=== PATIENT | female | born 1960 | race Caucasian/White ===

== ENCOUNTER 2024-12-15 14:04 | Emergency (ER) | payer OTHER, SELFPAY ==
--- OUTSIDE RECORDS SUMMARY | 2024-12-15 14:07 | XMS_ITS | Clinical Summary ---
Author Organization [facility] Address [address] [place] [id number] Care Team Providers Care Pitching Coach Name Role Phone Lm Lux MD Primary Care Provider [phone]- [phone] Finesse Vasquez PharmD Unavailable + Allergies Active Allergy Reactions Criticality Noted Date Comments Nitrofurantoin Hives 12/13/2007 Medications No known medications Active Problems Patient Care Coordination No te Formatting of this note migh t be different from the original. Getting back to work and general health on track is what matters most to Catalina. Catalina would like her care team to know has several grandchildren , supportive family likes to work. What are Catalina's challenges, stressors, or barriers? 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 Adenocarcinoma of colon 12/22/2017 Overview (10/13/2019): 12/22/17 Colonoscopy 07/2018 normal, repeat in 1 year PEG 8 left Colonoscopy 10/2019 normal, repeat in 3 year PEG 8 L Other atopic dermatitis and related conditions 1 11/19/2005 Overview (09/18/2006): eczema of the hand Resolved Problems Problem Noted Date Diagnosed Date Resolved Date Urinary tract infection, site not specified 10/06/2007 02/18/2015 Immunizations Name Administration Dates Next Due Influenza A (H1N1), Inactivated 10/29/2009 Influenza RIV4 (Age 18+ Year s) PRESERV FREE 07/11/2018 Influenza Virus, Unspecified 07/03/2015, 08/17/2012,07/24/2011,2009,07/01/2009 Influenza, IIV3 (Age 6-35 mos) 07/24/2013 Influenza, IIV4 12/06/2020,08/17/2019,07/17/2014 Influenza, IIV4 (=>6mos) MDV 06/29/2017 Td (Age >=7 Years) 04/15/1992 Tdap 02/19/2015 Family History Medical History Relation Name Comments Hypertension Brother Heart Disease Father Cancer-breast Mother Possible Cancer-colon Mother age 62 Diabetes Mother Hypertension Sister Relation Name Status Comments Brother Father Mother Sister Social History Tobacco Use Types Packs/Day Years Used Date Smoking Tobacco: Every Day Cigarettes 0.3 15 Smokeless Tobacco: Never Tobacco Cessation:Ready to Q uit: No; Counseling Given: Yes Comments:2 cig per day Alcohol Use Standard Drinks/Week Comments No 0 (1 standard drink = 0.6 oz pur e alcohol) PHQ-2 Answer Date Recorded PHQ-2 TOTAL SCORE 1 05/04/2022 Social Connections Answer Date Recorded Do you often feel lonely or isolated from those around you? 0 03/10/2024 Financial Resource Strain Answer Date R ecorded Difficulty of Paying Living Expenses 3 03/10/2024 Difficulty of Paying Living Expenses Not on file 03/10/2024 Food Insecurity Answer Date Recorded Do you worry your food will run out before you are able to buy more? 1 03/10/2024 Transportation Needs Answer Date Record ed Does lack of transportation keep you from medica l appointments? 1 03/10/2024 Does lack of transportation keep you from work, meetings or getting things that you need? 1 03/10/2024 Housing Stability Answer Date Recorded What is your housing situation today? 1 03/10/2024 Utilities Answer Date Recorded Do you have trouble paying f or utilities (for example, heat, electricity, water, phone)? 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 Not on file Not on file Not on file Not on file Not on file Not on file Not on file Obstetrics History Last Filed Vital Signs Vital Sign Reading Time Taken Comments Blood Pressure 143/91 03/10/2024 8:27 AM CDT Pulse 87 03/10/2024 8:27 AM CDT Temperature 36.7 C (98 F) 12/06/2020 9:01 AM [employer] MA[employer]GER Respiratory Rate 20 11/17/2019 11:15 AM [employer] MA[employer]GER Oxygen Saturation 98% 03/10/2024 8:27 AM CDT Inhaled Oxygen Concentration - - Weight 72.4 kg (159 lb 9 oz) 03/10/2024 8:27 AM CDT Height 158 cm (5' 2.21) 12/06/2020 9:01 AM [employer] MA[employer]GER Body Mass Index 28.99 12/06/2020 9:01 AM [employer] MANAGER Plan of Treatment Health Maintenance Due Date Last Done Comments Pneumococcal series for age 50+ (1 of 2 - PCV) 1978 BMI (ht and wt on same day) for age 18+ 12/06/2021 12/06/2020, 11/17/2019, 08/24/2019, Additional history exists Colonoscopy through age 75 10/13/202210/13, 10/13/2019, 10/13/2019, Additional history exists Depression screening for age 12+ 05/04/2023 05/04/2022, 12/09/2020, 12/06/2020, Additional history exists DEXA/DXA scan for age 65+ 2024 COVID-19 vaccine series ( - season) 2024 Influenza for age 65+ 06/11/2024 12/06/2020 , 08/17/2019, 07/11/2018, Additional history exists Tetanus booster 02/19/2025 02/19/2015, 04/15/1992 Mammogram for age 45-75 03/10/2025 03/10/20 24, 12/06/2020, 09/08/2019, Additional history exists Lipids for age 45-75 03/10/2029 03/10/2024, 12/06/2020, 08/18/2019, Additional history exists RSV vaccine for adults or (1 - 1-dose 75+ series) 2034 Tdap Completed 02/19/2015 Hepatitis C screening for ag e 18-79 Completed 04/06/2018 HIV for age 15-65 Completed 05/04/2022 Procedures Procedure Name Priority Date/Time Associated Diagnosis Comments XR MAMMO DRE BILAT SCREEN Routine 03/10/2024 10:00 AM CDT Visit for screening mammogram LIPID PANEL Routine 03/10/2024 9:20 AM CDT Hyperlipidemia, unspecified hyperlipidemia type ANTI HIV 1/2 Routine 05/04/2022 10:18 AM CDT Potential for cognitive impairment COLONOSCOPY 10/13/2019 8:44 AM [employer] MA[employer]GER ANTI HCV Routine 04/06/2018 8:15 AM CDT Need for hepatitis C screening test from Last 3 Months or Most Recently Relevant to Health Maintenance Results * XR MAMMO DRE BILAT SCREEN (03/10/2024 10:00 AM CDT) Anatomical Region Laterality Modality BREASTS, Breast Left, Breast Right Bilateral Mammography Impressions 03/13/2024 2:38 PM CDT There is no radiographic evidence for malignancy. Recommend annual mammograms. MAMMOGRAM ASSESSMENT: ACR 1 Negative PATIENTS: You will also receive a letter with your examination results in an easy to read format. If you have questions about your results, please contact your referring provider. Narrative 03/13/2024 2:38 PM CDT For Patients: As a result of the Century Cures Act, medical imaging exams and procedure reports are released immediately into your electronic medical record. You may view this report before your referring provider. If you have questions, please contact your health care provider. XR MAMMO DRE BILAT SCREEN [[id number]] CLINICAL HISTORY: This is an asymptomatic 63 y.o. patient. INDICATION FOR EXAM: Mammogram Screening. TECHNIQUE: CC & MLO views were obtained. This study was evaluated with the assistance of Computer-Aided Detection. Breast Tomosynthesis was used in interpretation. COMPARISON FILM: Yes 12/06/20 [facility] 09/08/19 [facility] FINDINGS: The breasts are almost entirely fatty. There are no dominant masses, suspicious micro calcifications or areas of architectural distortion. us Lm Lux MD MAMMO Final Resu lt * (ABNORMAL) LIPID PANEL (03/10/2024 9:20 AM CDT) CHOLESTEROL,TOTAL 249(H) 100 - 199 mg/dL 03/10/2024 7:21 PM CDT [facility] Comment: Cholesterol, Total Reference Ranges Desirable <200 mg/dL Borderline 200-239 mg/dL High >=240 mg/dL TRIGLYCERIDES 150(H) <150 mg/dL 03/10/2024 7:21 PM CDT [facility] HDL CHOLESTEROL 68 >40 mg/dL 7:21 PM CDT [facility] NON-HDL CHOLESTEROL 181(H) <145 mg/dl 03/10/2024 7:21 PM CDT [facility] CHOL/HDL RATIO 3.66 <4.50 03/10/2024 7:21 PM CDT [facility] LDL CHOLESTEROL 151(H) <=130 mg/dL 03/10/2024 7:21 PM CDT [facility] VLDL CHOLESTEROL 30 <=30 mg/dL 03/10/2024 7:21 PM CDT [facility] PROVIDER ORDERED STATUS RANDOM 03/10/2024 7:21 PM CDT [facility] Blood BLOOD SPECIMEN / Unknown Butterfly / Unknown 03/10/2024 9:20 AM CDT 03/10/2024 9:23 AM CDT Lm Lux MD CHEMISTRY Final [facility]u [facility] [address] [place] [address], [place] * ANTI HIV 1/2 [44714.0] (05/04/2022 10:18 AM CDT) HIV-1/HIV-2 ANTIBODY Non-Reacti ve Non-Reacti ve 05/04/2022 5:13 PM CDT [facility] Comment:HIV-1 p24 and HIV-1/ HIV-2 Ab not detected. Blood BLOOD SPECIMEN / Unknown Venipuncture / Unknown 05/04/2022 10:18 AM CDT 05/04/2022 10:20 AM CDT us Acosta Newell MD SEND OUTS Final Re sult [facility] [address] [place] [address], [place] * COLONOSCOPY (10/13/2019 8:44 AM [employer] MANAGER) 10/13/2019 8:44 AM [employer] MANAGER Narrative Transcriptions James Garcia MD - 10/13/2019 9:37 AM CST Patient Name: Catalina Giang Procedure Date: 10/13/2019 Gender: Female Date of : 1960 Admit Type: Outpatient Procedure: Colonoscopy Proceduralist: James Garcia MD , Hilda Sorensen RN(Nurse) Referring MD: Lm Lux Indications/Pre-Op Diagnosis: High risk colon cancer surveillance:Personal history of colon cancer, Last colonoscopy: July 2018 Medications: Fentanyl 100 micrograms IV, Midazolam 2 mgIV, The level of sedation administered wasmoderate Procedure Description: The patient had risks, benefits and alternatives explained to andgave informed consent. The patient had a stable cardiopulmonary status and judged an adequate candidate for conscious sedation. The Colonoscope was passed through the anus and advanced to thececum, identified by appendiceal orifice and ileocecal valve. Thecolonoscopy was performed without difficulty. The patient tolerated the procedure well. The quality of the bowel preparation was good. The ileocecal valve, appendiceal orifice, and rectum were photographed. Complications: No immediate complications. Estimated Blood Loss & Specimen: Estimated blood loss: none. Specimen collected - None Findings: The digital rectal exam findings include decreased sphincter tone. Pertinent negatives include no palpable rectal lesions. There was evidence of a prior end-to-end colo-colonic anastomosis inthe rectum. This was patent and was characterized by healthy appearing mucosa. The anastomosis was traversed. The exam was otherwise without abnormality. Impressions/Post-Op Diagnosis: - Decreased sphincter tone found on digital rectal exam. - Patent end-to-end colo-colonic anastomosis, characterized byhealthy appearing mucosa. - The examination was otherwise normal. - No specimens collected. Recommendation: - Patient has a contact number available for emergencies. The signsand symptoms of potential delayed complications were discussed with the patient. Return to normal activities tomorrow. Written discharge instructions were provided to the patient. - Resume previous diet. - Continue present medications. - Repeat colonoscopy in 3 years for surveillance. Moderate Sedation: Moderate (conscious) sedation was administered by the endoscopy nurse and supervised by the endoscopist. The following parameters were monitored: oxygen saturation, heart rate, respiratory rate, blood pressure, adequacy of pulmonary ventilation and reponse to care. Please refer to the patien'ts medical record flowsheets and nursing notes for moderate sedation details. Total physician intraservice time was 11 minutes. James Garcia MD 10/13/2019 9:37:14 AM This report has been signed electronically. Note Initiated On: 10/13/2019 8:44 AM Procedure Code(s): --- Professional --- 59417, Colonoscopy, flexible; diagnostic, including collection of specimen(s) bybrushing or washing, when performed (separateprocedure) Diagnosis Code(s): --- Professional --- Z85.038, Personal history of other malignant neoplasm of large intestine K62.89, Other specified diseases of anus and rectum Z98.0, Intestinal bypass and anastomosisstatus CPT copyright 2018 [employer]. All rights reserved. The codes documented in this report are preliminary and upon acetylene torch operator reviewmay be revised to meet current compliance requirements. Scope In: 9:23:02 AM Scope Withdrawal Time 0 hours 6 minutes 25 seconds Scope Out: 9:32:36 AM us James Garcia MD PROCEDURE ORD Final Res ult * ANTI HCV [75756.2] (04/06/2018 8:15 AM CDT) HEPATITIS C ANTIBODY Non-React pierce Non-React pierce 04/06/2018 2:57 PM CDT [facility] Comment:Antibodies to HCV no t detected; does not exclude the possibility of exposure to HCV. Blood BLOOD SPECIMEN / Unknown Venipuncture / Unknown 04/06/2018 8:15 AM CDT 04/06/2018 8:15 AM CDT us Lm Lux MD SEND OUTS Final Resu lt [facility] [address] [place] [address], from Last 3 Months or Most Recently Relevant to Health Maintenance Insurance [facility] IN[employer] AND FAMILY PLANS GORAN WILKES Advance Directives * Full Code (Latest Code Status on File) Date Activated Date Inactivated Comments 08/17/2019 2:34 PM 08/21/2019 1:13 PM Question Answer Comments Code Status Discussion: Not Discussed Care Teams Pitching Coach Relationship Specialty Start Date End Date Lm Lux MD [address] [place] [address] PCP - General Family Practice 02/11/18 Finesse Vasquez, PharmD [address] [place] [address] Pharmacist Pharmacology 03/24/18
--- NOTE | 2024-12-15 14:42 | ED.NURSE ---
Pt left prior to triage.
== END 2024-12-15 14:42 | disposition left against medical advice (07) ==
LOC: ED 14:39
PROVIDERS: PCP Surgery
DX: Z53.21 Procedure and treatment not carried out due to patient leaving prior to being seen by health care provider (principal)